=== PATIENT | female | born 1940 | race Caucasian/White ===

== ENCOUNTER → 2023-04-03 | Outpatient (CLI) | payer OTHER ==
--- NOTE | 2023-04-03 11:38 | Diagnostic Imaging Report ---
EXAMINATION: Right knee radiographs, 2 views. COMPARISON: None. HISTORY: 82-year-old female, right knee pain. 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 Prosthesis is intact. There is lucency adjacent of the distal tibial component measuring 2.6 mm. There is no identified acute fracture. IMPRESSION: 1. Right knee prosthesis with 2.6 mm lucency adjacent to the distal aspect of the tibial component of the hardware. Recommend correlation with earlier imaging to assess for possible loosening or infection. Dictated by: Dictated on workstation # [id number]
== END ==
LOC: ORTHO 09:33
PROVIDERS: ATTEND Orthopaedic Surgery
DX: T84.84XA Pain due to internal orthopedic prosthetic devices, implants and grafts, initial encounter (principal)
CPT/HCPCS: 73560; G0463; 99213